=== PATIENT | male | born 1980 | race African-American/Black ===

== ENCOUNTER 2019-06-12 14:07 | Emergency (ER) | payer SELFPAY | END 2019-06-12 14:36 | disposition home or self-care (01) | LOC: ERS 14:07 | DX: M25.571 Pain in right ankle and joints of right foot (principal); F17.210 Nicotine dependence, cigarettes, uncomplicated | CPT/HCPCS: 99281 ==

== ENCOUNTER 2019-07-13 16:56 | Emergency (ER) | payer SELFPAY | END 2019-07-13 18:10 | disposition home or self-care (01) | LOC: ERS 16:56 | DX: M54.6 Pain in thoracic spine (principal); F17.210 Nicotine dependence, cigarettes, uncomplicated | CPT/HCPCS: 99281 ==